=== PATIENT | female | born 1940 | race Caucasian/White ===

== ENCOUNTER → 2016-09-05 | Outpatient (CLI) | payer MEDICARE ==
--- NOTE | ~2016-09-05 | ECH ---
Transthoracic Echocardiography Report (TTE) Demographics Patient Name MELY HEREDIA Date of Study 09/05/2016 J Patient Number [id number] Visit Number [id number] Date of 1940 Room Number Accession Number [id number] Gender Female Age 76 year(s) Referring Mario Lawson MD Foreign Food Cook Specialty Yamilex Lafleur [facility] Physician Physician Interpreting Diya Carmona Boiler Operator Physician Supervising Ordering Physician Mario Lawson MD, MD/P Nurse Stress Graphic Coordinator Conclusions Contractility Score Summary Normal Left Ventricular contractility was noted. Summary Technically adequate exam. The estimated left ventricular ejection fraction is 60-65%. Mild left ventricular hypertrophy. Diastolic assessment reveals Grade I diastolic dysfunction. Bubble study was done, there is no evidence for a PFO or ASD. No significant valvular abnormalities. Recommendation The patient will be given the results of this study by the physician who ordered the exam. Procedure Type of Study TTE procedure:Echo Complete w Contrast SF. Procedure Date Date: 09/05/2016 Start: 01:06 PM Technical Quality: Adequate visualization Additional Indications:transient vision loss Appropriate Use Criteria: 9 Contrast Medium: Bubble Study. Height: 62 inches Weight: 160 pounds BSA: 1.74 m Rhythm: Within normal limits HR: 67 bpm BP: 155/72 mmHg M-Mode/2D Measurements LV Diastolic Dimension: 4.14 cm LV Systolic Dimension: 3.82 cm LV Septum Diastolic: 1.24 cm LV PW Diastolic: 1.22 cm AO Root Dimension: 2.73 cm Cardiac Output: 6.82 l/min LA Dimension: 3.88 cm Cardiac Index: 3.92 l/min*m LA volume index: 24 ml/m LVOT: 2.23 cm RV Base: 3.4 cm LVOT VTI: 26.09 cm RV Mid: 3 cm LV Stroke volume: 101.85 ml LV Stroke volume index: 58.53 ml/m Doppler Measurements AV Peak Velocity: 1.25 m/s MV Peak E-Wave: 0.72 m/s AV Peak Gradient: 6.25 mmHg MV Peak A-Wave: 1.14 m/s AV Mean Gradient: 2.7 mmHg MV E/A Ratio: 0.63 LVOT Peak Velocity: 1.33 m/s MV P1/2t: 76.1 msec AV Area (Continuity):4.18 cm MV Deceleration Time: 285.9 msec TR Velocity:2.32 m/s MV Area (PHT): 2.89 cm TR Gradient:21.48 mmHg PV Peak Velocity: 0.88 m/s Estimated RAP:5 mmHg PV Peak Gradient: 3.1 mmHg Estimated RVSP: 26 mmHg Estimated PASP: 26.48 mmHg RA Area: 12.37 cm Findings Left Ventricle The left ventricle is normal in size . Mild left ventricular hypertrophy. Diastolic assessment reveals Grade I diastolic dysfunction. Right Ventricle Normal right ventricle structure and function. Left Atrium Normal left atrial size. Bubble study was done, there is no evidence for a PFO or ASD. Right Atrium Normal right atrial size. Mitral Valve Normal mitral valve structure and function. Mild mitral regurgitation by color Doppler. Aortic Valve The aortic valve is mildly sclerotic. Tricuspid Valve Normal tricuspid valve structure and function. Mild tricuspid regurgitation by color Doppler. Estimated pulmonary pressures within normal range. Pulmonic Valve Normal pulmonic valve structure and function. Pericardial Effusion No evidence of pericardial effusion. Miscellaneous Visualized portions of the aortic root and ascending aorta appear normal in size. Pleural Effusion No evidence of pleural effusion. Contractility Score LV regional wall motion:(0-Non visualized 1-Normal 2-Hypokinesis 3-Akinesis 4-Dyskinesis 5-Aneurysm) Signature
== END | disposition home or self-care (01) ==
LOC: CARD 12:54
DX: H54.7 Unspecified visual loss (principal); I51.7 Cardiomegaly